=== PATIENT | female | born 1950 | race Caucasian/White ===

== ENCOUNTER 2017-06-10 08:11 | Day surgery (SDC) | payer BC ==
[2017-06-07 09:31] VITALS: BMI 16.0
[~2017-06-10 08:11] MED LIST: BUPIVACAINE HCL/PF 0.25% (2.5MG/ML) 10 ML VIAL IJ ONE; GABAPENTIN 300 MG CAPSULE (FP) PO ONE; methylPREDNISolone ACET (DEPO) 40 MG/1 ML VIAL IM ONE; traMADol HCL 50 MG TABLET PO ONE
[2017-06-10] MEDS ORDERED: traMADol HCL 50 MG TABLET ONE (09:17)
[2017-06-10] MEDS ORDERED: GABAPENTIN 300 MG CAPSULE (FP) ONE (09:17)
--- NOTE | 2017-06-10 10:37 | HP ---
History & Physical Update - History History: No Change - Physical Physical: No Change - Assessment Assessment: No Change - Plan Plan: No Change
[2017-06-10] MEDS ORDERED: methylPREDNISolone ACET (DEPO) 40 MG/1 ML VIAL ONE (10:44)
[2017-06-10] MEDS ORDERED: BUPIVACAINE HCL/PF 2.5 MG/ML - 30 ML VIAL IJ ONE (10:44)
[2017-06-10] MEDS ORDERED: LIDOCAINE 1%/EPI 1:100000 (20 ML MULTI DOSE VIAL) ONE (10:44)
[2017-06-10] MEDS ORDERED: THROMBIN (BOVINE) 5,000 UNIT VIAL TP ONE ×2 (10:44→11:40)
[2017-06-10] MEDS ORDERED: BUPIVACAINE HCL/PF 0.5% (5MG/ML) 10 ML VIAL ONE (10:46)
[2017-06-10] MEDS ORDERED: MIDAZOLAM HCL 2 MG/2 ML SINGLE DOSE VIAL ONE ×2 (10:48)
[2017-06-10] MEDS ORDERED: CLINDAMYCIN PHOSPHATE 600 MG/4 ML VIAL ONE (11:15)
[2017-06-10] MEDS ORDERED: LIDOCAINE 1%/EPI 1:100000 (50 ML MULTI DOSE VIAL) INF ONE (11:27)
[2017-06-10] MEDS ORDERED: GELATIN SPONGE,ABSORBABLE 1 GM PACKET TP ONE (11:40)
[2017-06-10] MEDS ORDERED: methylPREDNISolone ACET (DEPO) 40 MG/1 ML VIAL IM ONE (11:56)
[2017-06-10] MEDS ORDERED: BUPIVACAINE HCL/PF 0.25% (2.5MG/ML) 10 ML VIAL IJ ONE (11:58)
[2017-06-10] MEDS ORDERED: ONDANSETRON 4 MG/2 ML VIAL ONE (12:14)
[2017-06-10] MEDS ORDERED: LACTATED RINGERS SOLUTION 1,000 ML IV SCH (13:00)
[2017-06-10 13:29] VITALS: TEMP 98.2
[2017-06-10] MEDS ORDERED: ONDANSETRON 4 MG/2 ML VIAL IVPUSH PRN (13:57)
--- NOTE | 2017-06-10 14:12 | SURG ---
Surgery Director Business Note Director Business: Anabella He PA-C Date of Service: 06/10/17 Diagnosis: L5-S1 spinal stenosis Procedure: L5-S1 laminectomy I was present for the entirety of the operative procedure. For further detail, please refer to operative report. Visit type - Case Type Case Type: Scheduled Admission - Emergency Emergency Visit: No - New patient This patient is new to me today: Yes Date on this admission: 06/10/17 - Critical Care Critical Care patient: No
--- NOTE | 2017-06-10 14:12 | OP ---
Operative Note - Note: Operative Date: 06/10/17 Pre-Operative Diagnosis: L5-S1 spinal stenosis Operation: L5-S1 laminectomy Surgeon: Elian Rico Telecommunications Administrator: Anabella He Anesthesiologist/BOX GLUER: Jane Degroot Anesthesia: Spinal Estimated Blood Loss (mls): 20 Fluid Volume Replaced (mls): 1,000 Operative Report Dictated: Yes
[2017-06-10 16:09] VITALS: BP 130/72; PULSE 82
--- NOTE | 2017-08-16 11:33 | OP ---
DATE OF OPERATION: 06/10/2017 PREOPERATIVE DIAGNOSIS: L5-S1 spinal stenosis. POSTOPERATIVE DIAGNOSIS: L5-S1 spinal stenosis. PROCEDURE PERFORMED: L5-S1 laminectomy. SURGEON: Elian Rico MD CHILD ATTENDANT: ZEINAB Seth ESTIMATED BLOOD LOSS: 50 mL. IV FLUIDS: Per Anesthesia. ANESTHESIA: Spinal. COMPLICATIONS: None. DISPOSITION: The patient was brought to the PACU in stable condition. INDICATIONS FOR SURGERY: The patient is a 67-year-old female who has been suffering from pain from her back down her leg. X-rays and MRI were completed, which noted that he had spinal stenosis at L5-S1. She had gone through an exhaustive course of treatment for this, which included medications, physical therapy as well as injections. Unfortunately, her pain continued to persist despite all this. At this point, risks, benefits, and alternatives were discussed, and the patient consented to surgery. DESCRIPTION OF PROCEDURE: The patient was brought to the operating room by the Anesthesia staff. After appropriate patient identification was performed, spinal anesthesia was administered. Appropriate anesthetic lines were placed. She was placed prone onto the Jarrett frame. The patient was able to position herself to avoid all bony prominences. Two needles were placed into her back to eugene off the L5-S1 segment. X-ray was taken to confirm. The needle was removed, and 10 mL of lidocaine with epinephrine was injected into her back. At this time, her back was prepped and draped in a sterile manner. At this point, a time-out was completed. An incision was made from the top of L4 down to the bottom of S1. Dissection was carried down to the fascia. Fascia was split open at this time, and appropriate retractor was then placed in. A spinal needle was placed onto the L5 lamina to eugene off the L5-S1 level. An x-ray was taken to confirm this was correct. The needle was removed, and the microscope was brought in. At this point, the interspinous ligament at L5-S1 was removed. Portions of the L5-S1 spinous process was removed. Portions of the L5-S1 lamina were removed. The flavum was identified, and it was removed. A complete decompression was performed such that by the end of the procedure, the S1 nerve root appeared to be well decompressed. All bleeding was well controlled at this time. Steri-Strips was placed over the nerve root. FloSeal was placed over that. The fascia was closed with a No. 1 Vicryl suture. The subcutaneous tissue was closed with 2-0 Vicryl suture. The skin was closed with 3-0 Monocryl suture. Dermabond was applied. Steri-Strips were applied. A sterile dressing was applied. The patient was placed supine on the OR bed, extubated in the OR, and brought to the PACU in stable condition. Reuben CALERO/[id number]
== END 2017-06-10 16:12 | disposition home or self-care (01) ==
LOC: FASU 08:11
PROVIDERS: ATTEND Orthopaedic Surgery Orthopaedic Surgery of the Spine
PROC: 01NB0ZZ Release Lumbar Nerve, Open Approach (ICD-10-PCS; principal; 2017-06-10 10:55)
DX: M48.07 Spinal stenosis, lumbosacral region (principal)
CPT/HCPCS: 72100-TC; 94760

== ENCOUNTER 2018-08-01 06:25 | Day surgery (SDC) | payer OTHER, MEDICARE ==
[2018-07-25 17:26] VITALS: BMI 16.9
[2018-08-01] MEDS ORDERED: methylPREDNISolone ACET (DEPO) 40 MG/1 ML VIAL ONE (07:04)
[2018-08-01] MEDS ORDERED: LIDOCAINE 1%/EPI 1:100000 (20 ML MULTI DOSE VIAL) ONE (07:04)
[2018-08-01] MEDS ORDERED: THROMBIN (BOVINE) 5,000 UNIT VIAL TP ONE ×2 (07:04→09:53)
[2018-08-01] MEDS ORDERED: GUM MASTIC/STORAX/MSAL/ALCOHOL 1 DRP DROPSBTL MC ONE (07:04)
[2018-08-01] MEDS ORDERED: SODIUM CHLORIDE 0.9% P/F 10 ML VIAL IJ ONE (07:13)
[2018-08-01] MEDS ORDERED: ceFAZolin SODIUM 1 GM VIAL ONE (07:13)
[2018-08-01] MEDS ORDERED: ONDANSETRON 4 MG/2 ML VIAL ONE (07:13)
[2018-08-01] MEDS ORDERED: MIDAZOLAM HCL 2 MG/2 ML SINGLE DOSE VIAL ONE ×2 (07:24→09:23)
[2018-08-01] MEDS ORDERED: DEXAMETHASONE SOD PHOSPHATE/PF 10 MG/ML SDV ONE (07:26)
[2018-08-01] MEDS ORDERED: BUPIVACAINE HCL/PF 2.5 MG/ML - 30 ML VIAL IJ ONE (07:27)
[2018-08-01] MEDS ORDERED: BUPIVACAINE HCL/PF (5 MG/ML) 30 ML VIAL IJ ONE (07:27)
[2018-08-01] MEDS ORDERED: PROPOFOL 20 ML ONE ×2 (07:41→09:17)
--- NOTE | 2018-08-01 08:17 | HP ---
History & Physical Update - History History: No Change - Physical Physical: No Change - Assessment Assessment: No Change - Plan Plan: No Change (H&P in chart from 07/26/18)
[2018-08-01] MEDS ORDERED: ONDANSETRON 4 MG/2 ML VIAL IVPUSH PRN (08:36)
[2018-08-01] MEDS ORDERED: oxyCODONE HCL 5 MG TABLET PO PRN (08:36)
[2018-08-01] MEDS ORDERED: CLINDAMYCIN PHOSPHATE 600 MG/4 ML VIAL ONE (08:45)
[2018-08-01] MEDS ORDERED: LACTATED RINGERS SOLUTION 1,000 ML IV SCH ×2 (08:45→11:12)
[2018-08-01] MEDS ORDERED: DEXAMETHASONE SOD PHOSPHATE 4 MG/1 ML VIAL ONE (08:58)
[2018-08-01] MEDS ORDERED: LIDOCAINE 1%/EPI 1:100000 (50 ML MULTI DOSE VIAL) INF ONE (09:15)
[2018-08-01] MEDS ORDERED: GELATIN, ABSORBABLE 100 EACH SPONGE TP ONE (09:54)
[2018-08-01] MEDS ORDERED: methylPREDNISolone ACET (DEPO) 40 MG/1 ML VIAL IM ONE (09:55)
[2018-08-01] MEDS ORDERED: ACETAMINOPHEN/CAFFEINE/BUTALBITAL 1 TAB PO PRN (11:13)
[2018-08-01] MEDS ORDERED: ACETAMINOPHEN/CAFFEINE/BUTALBITAL 1 TAB PO ONE (12:00)
[2018-08-01] MEDS ORDERED: ACETAMINOPHEN/CAFFEINE/BUTALBITAL 1 TAB ONE (12:08)
[2018-08-01 13:01] VITALS: TEMP 98.3
[2018-08-01] MEDS ORDERED: traMADol HCL 50 MG TABLET PO PRN (13:25)
[2018-08-01] MEDS ORDERED: traMADol HCL 50 MG TABLET ONE (13:35)
--- NOTE | 2018-08-01 13:35 | OP ---
Operative Note - Note: Operative Date: 08/01/18 Pre-Operative Diagnosis: lumbar stenosis Operation: laminectomy of L5-S1, primary repair of durotomy/duraseal Surgeon: Elian Rico Seafood Clerk: Anabella He Anesthesiologist/ACQUISITION PROFESSIONAL: Adrian Ramos Anesthesia: Spinal Estimated Blood Loss (mls): 20 Fluid Volume Replaced (mls): 900 Operative Report Dictated: Yes
--- NOTE | 2018-08-01 13:36 | SURG ---
Surgery Thread Winder Note Thread Winder: Anabella He PA-C Date of Service: 08/01/18 Diagnosis: lumbar stenosis Procedure: laminectomy of L5-S1, primary repair of durotomy/duraseal I was present for the entirety of the operative procedure. For further detail, please refer to operative report. Visit type - Case Type Case Type: Scheduled - Emergency Emergency Visit: No - New patient This patient is new to me today: Yes Date on this admission: 08/01/18
[2018-08-01] MEDS ORDERED: HYDROmorphone HCL 2 MG TABLET ONE (15:12)
[2018-08-01] MEDS ORDERED: ACETAMINOPHEN 1000 MG/100 ML VIAL (NON FORMULARY) IVPB ONE (15:15)
[2018-08-01 15:37] VITALS: BP 142/74; PULSE 102
== END 2018-08-01 16:44 | disposition home or self-care (01) ==
LOC: FASU 06:25
PROVIDERS: ATTEND Orthopaedic Surgery Orthopaedic Surgery of the Spine
PROC: 00QT0ZZ Repair Spinal Meninges, Open Approach (ICD-10-PCS; 2018-08-01)
PROC: 01NB0ZZ Release Lumbar Nerve, Open Approach (ICD-10-PCS; principal; 2018-08-01 08:37)
DX: M48.07 Spinal stenosis, lumbosacral region (principal); G96.11 Dural tear
CPT/HCPCS: 72100-TC-FY; 94760